=== PATIENT | male | born 1995 | race Caucasian/White ===

== ENCOUNTER 2019-12-20 12:38 | Emergency (ER) | payer OTHER ==
[~2019-12-20] VITALS: Ht 165.1 cm; Wt 89.4 kg
[2019-12-20 13:10] VITALS: Ht 165.1 cm; Wt 89.4 kg
[2019-12-20 15:55] LABS: BASOPHIL % 0.3 % (0-2); PLATELET COUNT 362 x10^3mcL (130-400); RED CELL DISTRIBUTION WIDTH 12.7 % (11.5-14.5)
[2019-12-20 16:04] LABS: CALCIUM 9.1 mg/dL (8.5-10.1); CARBON DIOXIDE 28.2 mmol/L (21-32); CHLORIDE SERUM 99 mmol/L (98-107); GFR1 > 60 mL/min; GLUCOSE SERUM 95 mg/dL (74-106); SODIUM SERUM 136 mmol/L (136-145)
[2019-12-20 16:09] LABS: ALBUMIN 4.6 g/dL (3.4-5.0); ALKALINE PHOSPHATASE 97 U/L (46-116); ALT/SGPT 34 U/L (16-63); AST/SGOT 24 U/L (15-37); BILIRUBIN TOTAL 0.5 mg/dL (0.20-1.00); TOTAL PROTEIN, SERUM 8.6 g/dL (6.4-8.2)
[2019-12-20 17:26] VITALS: BP 154/68
== END 2019-12-20 17:26 | disposition home or self-care (01) ==
LOC: ED 12:38
PROVIDERS: Emergency Medicine
DX: N23 Unspecified renal colic (principal)
CPT/HCPCS: 36415; J1885; Q0092